=== PATIENT | male | born 1970 | race Caucasian/White ===

== ENCOUNTER 2018-06-01 11:26 | Emergency (ER) | payer BC, OTHER ==
[~2018-06-01] VITALS: Ht 182.9 cm; Wt 70.3 kg
[2018-06-01] MEDS ORDERED: methylPREDNISolone 125 MG (Solu-MEDROL) VIAL IVP ONE (11:45)
[2018-06-01] MEDS ORDERED: RT-ALBUTEROL/IPRATROPIUM 3 ML (DUONEB) VIAL INH ONE (11:45)
--- NOTE | 2018-06-01 11:46 | ED Respiratory ---
General Chief Complaint: Respiratory Problems Stated Complaint: SOB Nursing Triage Note: ARRIVED VIA AMB TO ROOM 06 WITH COMPLAINTS OF SOA X1 MONTH THAT HAS BECAME WORSE OVER THE LAST TWO DAYS. SPITTING UP YELLOW PHLEM ET FEVER LAST NIGHT. Source: patient, family Exam Limitations: no limitations History of Present Illness Date Seen by Provider: Jun 01, 2018 Time Seen by Provider: 11:43 Initial Comments This 47-year-old white male presents with a history of increasing shortness of breath and wheezing for the past month. Patient has noted an associated productive yellow sputum and had a fever last night. The patient has a history of COPD. He has stopped cigarette smoking but continues to smoke marijuana. The patient denies associated headache, stiff neck, photophobia, nausea vomiting or diarrhea, palpitations or chest pressure, dysuria or frequency. Allergies and Home Medications Allergies Coded Allergies: No Known Drug Allergies (Unverified , 06/01/18) Home Medications No Active Prescriptions or Reported Meds Patient Home Medication List Home Medication List Reviewed: Yes Review of Systems Review of Systems Constitutional: see HPI, fever EENTM: No hearing loss, No vision loss Respiratory: see HPI, cough, dyspnea on exertion, short of breath Cardiovascular: No chest pain, No palpitations Gastrointestinal: No abdominal pain, No diarrhea, No nausea, No vomiting Genitourinary: No dysuria, No frequency Musculoskeletal: No back pain Skin: No rash Psychiatric/Neurological: No Symptoms Reported Hematologic/Lymphatic: No Symptoms Reported Immunological/Allergic: no symptoms reported Past Pfvnmqn-Drgxnr-Kmkoqu Hx Past Med/Social Hx: Reviewed Nursing Past Med/Soc Hx Patient Social History Recent Foreign Travel: No Contact w/Someone Who Travel: No Recent Infectious Disease Expo: No Physical Exam Vital Signs - First Documented 06/01/18 11:38 Temp 95.1 Pulse 106 Resp 16 B/P (MAP) 142/88 (106) Pulse Ox 97 O2 Delivery Room Air Capillary Refill : Less Than 3 Seconds Height: 6'" Weight: 155lbs. oz. 70.609353ug; BMI Method:Stated General Appearance: WD/WN, no apparent distress Eyes: Bilateral Eye Normal Inspection HEENT: normal ENT inspection Neck: normal inspection Respiratory: decreased breath sounds, wheezing Cardiovascular: regular rate, rhythm, no murmur Gastrointestinal: non tender, soft Extremities: normal range of motion, normal inspection Neurologic/Psychiatric: no motor/sensory deficits, alert, normal mood/affect Skin: normal color, warm/dry Focused Exam Lactate Level 06/01/18 11:55: Lactic Acid Level 1.83 Lactic Acid Level Laboratory Tests Test 06/01/18 11:55 Lactic Acid Level 1.83 MMOL/L (0.50-2.00) Progress/Results/Core Measures Suspected Sepsis Recent Fever Within 48 Hours: Yes Infection Criteria Present: Suspected New Infection New/Unexplained Altered Menta: No Sepsis Screen: Possible Sepsis Risk SIRS Temperature:95.1 Pulse: 106 Respiratory Rate: 16 Laboratory Tests 06/01/18 11:55: White Blood Count 11.2H Blood Pressure 142 /88 Mean: 106 06/01/18 11:55: Lactic Acid Level 1.83 Laboratory Tests 06/01/18 11:55: Platelet Count 336 Results/Orders Lab Results Laboratory Tests Test 06/01/18 11:55 Range/Units White Blood Count 11.2 H 4.3-11.0 10^3/uL Red Blood Count 4.87 4.35-5.85 10^6/uL Hemoglobin 13.7 13.3-17.7 G/DL Hematocrit 42 40-54 % Mean Corpuscular Volume 86 80-99 FL Mean Corpuscular Hemoglobin 28 25-34 PG Mean Corpuscular Hemoglobin Concent 33 32-36 G/DL Red Cell Distribution Width 12.5 10.0-14.5 % Platelet Count 336 130-400 10^3/uL Mean Platelet Volume 9.2 7.4-10.4 FL Neutrophils (%) (Auto) 79 H 42-75 % Lymphocytes (%) (Auto) 10 L 12-44 % Monocytes (%) (Auto) 8 0-12 % Eosinophils (%) (Auto) 1 0-10 % Basophils (%) (Auto) 1 0-10 % Neutrophils # (Auto) 8.9 H 1.8-7.8 X 10^3 Lymphocytes # (Auto) 1.1 1.0-4.0 X 10^3 Monocytes # (Auto) 0.9 0.0-1.0 X 10^3 Eosinophils # (Auto) 0.1 0.0-0.3 10^3/uL Basophils # (Auto) 0.1 0.0-0.1 10^3/uL Lactic Acid Level 1.83 0.50-2.00 MMOL/L Troponin T < 6 <=15 NG/L My Orders Orders - NESTOR LI MD Chest Pa/Lat (2 View) (06/01/18 11:40) Cbc With Automated Diff (06/01/18 11:40) Ekg Tracing (06/01/18 11:40) Troponin T (06/01/18 11:40) Albuterol/Ipra Inhalation Soln (Duoneb I (06/01/18 11:45) Svn Small Volume Nebulizer (06/01/18 11:40) Methylprednisolone Sod Succ (Solu-Medrol (06/01/18 11:45) Saline Lock/Iv-Start (06/01/18 11:40) Blood Culture (06/01/18 11:46) Lactic Acid Analyzer (06/01/18 11:46) Medications Given in ED Current Medications Medications Dose Ordered Sig/Catherine Route Start Time Stop Time Status Last Admin Dose Admin Albuterol/ Ipratropium 3 ml ONCE ONCE INH 06/01/18 11:45 06/01/18 11:46 DC 06/01/18 11:49 3 ML Methylprednisolone Sodium Succinate 125 mg ONCE ONCE IVP 06/01/18 11:45 06/01/18 11:46 DC 06/01/18 11:56 125 MG Vital Signs/I&O 06/01/18 11:38 Temp 95.1 Pulse 106 Resp 16 B/P (MAP) 142/88 (106) Pulse Ox 97 O2 Delivery Room Air Capillary Refill : Less Than 3 Seconds Blood Pressure Mean: 106 Progress Note : Time: 12:48 Progress Note The patient was given a DuoNeb treatment and 125 mg of Solu-Medrol IV. The patient's laboratory and radiographic evaluation demonstrating no evidence of an infiltrate on the patient's chest x-ray and a normal white count. I believe the patient's presentation is most consistent with asthmatic bronchitis which she has had in the past. I recommended patient discontinue smoking marijuana. I the employee Bactrim, prednisone, and a Ventolin inhaler. I he follow-up with his doctor tomorrow. I invited him to return to the emergency department if he has any further problems or questions. Departure Impression Primary Impression: Asthmatic bronchitis Qualified Codes: J45.41 - Moderate persistent asthma with (acute) exacerbation Disposition: 01 HOME, SELF-CARE Condition: Improved Departure-Patient Inst. Decision time for Depature: 12:52 Referrals: TALIA BRICE MD (PCP/Family) Primary Care Physician Patient Instructions: Acute Bronchitis, Adult (DC) Add. Discharge Instructions: Bactrim, prednisone, and Ventolin inhaler as prescribed. Close follow-up with your doctor tomorrow. Return if any problems or questions. All discharge instructions reviewed with patient and/or family. Voiced understanding. Scripts No Active Prescriptions or Reported Meds NESTOR LI MD Jun 01, 2018 11:46
[2018-06-01 12:08] LABS: HEMATOCRIT 42 % (40-54); HEMOGLOBIN 13.7 G/DL (13.3-17.7); MEAN CORPUSCULAR HEMOGLOBIN 28 PG (25-34); MEAN CORPUSCULAR HGB CONC 33 G/DL (32-36); MEAN CORPUSCULAR VOLUME 86 FL (80-99); MEAN PLATELET VOLUME 9.2 FL (7.4-10.4); PLATELET COUNT 336 10^3/uL (130-400); RED CELL DISTRIBUTION WIDTH 12.5 % (10.0-14.5); WHITE BLOOD COUNT 11.2 10^3/uL (4.3-11.0)
[2018-06-01 12:09] LABS: BASOPHILS # (AUTO) 0.1 10^3/uL (0.0-0.1); BASOPHILS % (AUTO) 1 % (0-10); EOSINOPHILS # (AUTO) 0.1 10^3/uL (0.0-0.3); EOSINOPHILS % (AUTO) 1 % (0-10); LYMPHOCYTES # (AUTO) 1.1 X 10^3 (1.0-4.0); LYMPHOCYTES % (AUTO) 10 % (12-44); MONOCYTES # (AUTO) 0.9 X 10^3 (0.0-1.0); MONOCYTES % (AUTO) 8 % (0-12); NEUTROPHILS # (AUTO) 8.9 X 10^3 (1.8-7.8); NEUTROPHILS % (AUTO) 79 % (42-75)
--- NOTE | 2018-06-01 12:10 | NUR ---
PT STATES HE IS BREATING BETTER AFTER BREATHING TX.
--- NOTE | 2018-06-01 12:24 | Diagnostic Imaging Report ---
INDICATION: Shortness of breath, cough, fever. TECHNIQUE: Two views of the chest COMPARISON: None FINDINGS: The lung volumes are large. No focal consolidation is seen. No large pleural effusion or pneumothorax is seen. The cardiomediastinal silhouette is normal in size and contour. No acute osseous abnormality is seen. IMPRESSION: Large lung volumes with no acute pulmonary abnormality seen. Dictated by: Dictated on workstation # [id number]
--- NOTE | 2018-06-01 12:50 | NUR ---
LAB IN ROOM AT THIS TIME.
[2018-06-01 12:57] VITALS: BP 152/89
== END 2018-06-01 12:57 | disposition home or self-care (01) ==
LOC: ER FS 11:29
DX: J45.909 Unspecified asthma, uncomplicated (principal); J44.9 Chronic obstructive pulmonary disease, unspecified; F12.10 Cannabis abuse, uncomplicated; Z87.891 Personal history of nicotine dependence
CPT/HCPCS: 36415; 71046; 83605; 84484; 85025; 87040; 93005

== ENCOUNTER 2018-06-27 10:40 | Emergency (ER) | payer BC ==
[~2018-06-27] VITALS: Ht 182.9 cm; Wt 72.6 kg
[2018-06-27] MEDS ORDERED: FLUORESCEIN (FLUOR-I-STRIPS) 1 MG STRP ONE (10:49)
[2018-06-27] MEDS ORDERED: TETRACAINE 0.5% OPHTH SOLN 4 ML BTL (SINGLE DOSE ONLY) OP ONE (11:00)
[2018-06-27] MEDS ORDERED: ERYT1OIN6 OP (11:14)
--- NOTE | 2018-06-27 11:15 | ED General ---
General Chief Complaint: Eye Problems Stated Complaint: GLASS IN LT EYE Nursing Triage Note: PT REPORTS 3-4 DAYS AGO SOMETHING BLEW IN HIS LEFT EYE Nursing Sepsis Screen: No Definite Risk History of Present Illness Date Seen by Provider: June 27, 2018 Time Seen by Provider: 11:00 Initial Comments Patient presenting to the emergency department for evaluation of a foreign body to his left eye he says he sustained 3 days ago while he was working underneath his pickup truck he felt something fall into. He has been trying to get foreign bodies out with a Q-tip pushing on his eye and has had minimal success in getting any relief. He says that he is having worsening pain and tearing with increased blurred vision. He says that his tetanus is up-to-date. Allergies and Home Medications Allergies Coded Allergies: No Known Drug Allergies (Unverified , 06/01/18) Home Medications Erythromycin Base 1 Gm Oint...g., 0 OP Q2H 1/2 inch Prescribed by: DANIEL MUNIZ on 06/27/18 1114 Patient Home Medication List Home Medication List Reviewed: Yes Review of Systems Review of Systems Constitutional: No fever EENTM: blurred vision, eye pain, tearing; No double vision, No vision loss Past Hrswcau-Dlxgsq-Cscwih Hx Patient Social History Alcohol Use: Denies Use Recreational Drug Use: No Drug of Choice: POT Smoking Status: Former Smoker 2nd Hand Smoke Exposure: No Recent Foreign Travel: No Contact w/Someone Who Travel: No Recent Infectious Disease Expo: No Recent Hopitalizations: No Physical Abuse: No Sexual Abuse: No Mistreated: No Fear: No Immunizations Up To Date Tetanus Booster (TDap): Less than 5yrs Past Medical History Gallbladder, Orthopedic, Tonsillectomy Respiratory: Yes COPD Cardiac: No Neurological: No Genitourinary: No Gastrointestinal: No Musculoskeletal: No Endocrine: No HEENT: No Cancer: No Psychosocial: No Integumentary: No Physical Exam Vital Signs Vital Signs - First Documented 06/27/18 06/27/18 10:59 11:16 Temp 98.7 Pulse 93 Resp 18 B/P (MAP) 134/84 (101) Pulse Ox 97 O2 Delivery Room Air Capillary Refill : NONE Height, Weight, BMI Height: 6'" Weight: 160lbs. oz. 72.743706dk; BMI Method:Stated General Appearance: No Apparent Distress, WD/WN Eyes: Left Eye Photophobia, Left Eye Other (sclera injected diffusely. Over center of pupil there is a metallic appearing foreign body. Negative Seidels on fluoro exam. No abrasion on fluoro exam. 20/20 BL, 20/20 R, 20/80 L); Bilateral Eye PERRL, Bilateral Eye EOMI Procedures/Interventions Eye : Location: left eye Eye FB Removal: removal w/ needle Anesthesia (gtts): Tetracaine Progress/Procedure Conclusion Used 30 gauge needle to remove metallic foreign body. I needed approximate 6 attempts as he was moving his eye. There is an abrasion in the area where the foreign body was removed. On multiple is inspections there is no further foreign body in his Ericka's sign was negative post procedure as well. Progress/Results/Core Measures Suspected Sepsis Recent Fever Within 48 Hours: No Infection Criteria Present: None New/Unexplained Altered Menta: No Sepsis Screen: No Definite Risk SIRS Temperature:98.7 Pulse: 93 Respiratory Rate: 18 Blood Pressure 134 /84 Mean: 101 Results/Orders My Orders Orders - DANIEL MUNIZ DO Tetracaine 0.5% Ophth Meg Sdv (Tetracai (06/27/18 11:00) Fluorescein Strips (Gopvy-S-Bdfukz) (06/27/18 10:49) Medications Given in ED Current Medications Medications Dose Ordered Sig/Catherine Route Start Time Stop Time Status Last Admin Dose Admin Fluorescein Sodium 1 mg STK-MED ONCE .ROUTE 06/27/18 10:49 06/27/18 10:54 DC 06/27/18 10:58 1 MG Vital Signs/I&O 06/27/18 06/27/18 10:59 11:16 Temp 98.7 98.7 Pulse 93 92 Resp 18 20 B/P (MAP) 134/84 (101) 134/84 (101) Pulse Ox 97 O2 Delivery Room Air Room Air Capillary Refill : NONE Blood Pressure Mean: 101 Progress Note : Progress Note Patient has direct photophobia but no consensual photophobia. Is possible he could have an early iritis however more likely his sclerae inflamed from the foreign body being present. Hopefully this will improve now that the foreign bodies removed that he was told that it is very important that he follows with an eye doctor in 2 days to ensure improvement. He was placed on erythromycin ointment and he was referred to the ophthalmology clinic to follow-up on Friday for repeat exam. He was told to come back to emergency department with worsening pain blurred vision or other general concerns. Departure Impression Primary Impression: Foreign body, eye Disposition: HOME, SELF-CARE Condition: Stable Departure-Patient Inst. Decision time for Depature: 11:12 Referrals: TALIA BRICE MD (PCP/Family) Primary Care Physician Scripts Erythromycin Base (Erythromycin Opthalmic Ointment) 1 Gm Oint...g. 0 OP Q2H for 5 Days, #1 TUBE 1/2 inch Prov: DANIEL MUNIZ DO 06/27/18 DANIEL MUNIZ DO June 27, 2018 11:15
[2018-06-27 11:16] VITALS: BP 134/84
== END 2018-06-27 11:19 | disposition home or self-care (01) ==
LOC: EDUNIT# 10:40 → ER FS 10:42
DX: T15.02XA Foreign body in cornea, left eye, initial encounter (principal); J44.9 Chronic obstructive pulmonary disease, unspecified; Z90.89 Acquired absence of other organs; Z87.891 Personal history of nicotine dependence
CPT/HCPCS: 65220

== ENCOUNTER 2018-11-17 19:15 | Emergency (ER) | payer SELFPAY ==
[~2018-11-17] VITALS: Ht 182.9 cm; Wt 75.0 kg
[~2018-11-17 19:15] MED LIST: ERYT1OIN6 OP
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
[2018-11-17] MEDS ORDERED: morphine INJ 10 MG/ML 1ML (SYR OR VIAL) IM STA (19:34)
[2018-11-17] MEDS ORDERED: oxyCODONE/APAP 10/325MG (PERCOCET 10) TABLET PO ONE (20:15)
[2018-11-17] MEDS ORDERED: oxyCODONE/APAP 5/325MG (PERCOCET 5) TABLET ONE (20:22)
[2018-11-17 20:29] VITALS: BP 157/91
[2018-11-17] MEDS ORDERED: oxyCODONE/APAP 5/325MG (PERCOCET 5) TABLET PO ONE (20:30)
== END 2018-11-17 20:32 | disposition home or self-care (01) ==
LOC: EDUNIT# 19:15 → ER FS 19:17
DX: T22.211A Burn of second degree of right forearm, initial encounter (principal); T23.261A Burn of second degree of back of right hand, initial encounter; T31.0 Burns involving less than 10% of body surface; J44.9 Chronic obstructive pulmonary disease, unspecified; Z90.89 Acquired absence of other organs; X10.2XXA Contact with fats and cooking oils, initial encounter
CPT/HCPCS: 96372; 99284

== ENCOUNTER 2020-03-09 14:24 | Emergency (ER) | payer OTHER ==
[~2020-03-09] VITALS: Ht 182.8 cm; Wt 75.0 kg
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
[2020-03-09] MEDS ORDERED: fentaNYL INJECTION 100 MCG/2 ML AMP IVP STA ×2 (14:37→16:03)
[2020-03-09] MEDS ORDERED: NS IV 1000 ML 1,000 ML IV SCH (14:45)
--- NOTE | 2020-03-09 14:49 | NUR ---
SL started per Sera Hodge RN, labs drawn.
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
--- NOTE | 2020-03-09 14:55 | NUR ---
Sublimaze 50 mcg given SIVP for pain rated "10"/10.
--- NOTE | 2020-03-09 14:55 | NUR ---
NS hung wide open.
[2020-03-09] MEDS ORDERED: CATHETER FLUSH 10 ML SYR IV PRN (15:00)
[2020-03-09] MEDS ORDERED: NS 100 ML (IVPB) BAG IV ONE (15:00)
[2020-03-09] MEDS ORDERED: IOHEXOL 350 MG/ML 100 ML (OMNIPAQUE 350) VIAL IV ONE (15:00)
[2020-03-09] MEDS ORDERED: HOLD METFORMIN - RECEIVED CONTRAST 20 ML VIAL IV SCH (15:00)
--- NOTE | 2020-03-09 15:00 | NUR ---
Pt denies ability to give urine sample.
[2020-03-09 15:20] LABS: BASOPHILS # (AUTO) 0.1 10^3/uL (0.0-0.1); BASOPHILS % (AUTO) 2 % (0-10); EOSINOPHILS # (AUTO) 0.1 10^3/uL (0.0-0.3); EOSINOPHILS % (AUTO) 1 % (0-10); HEMATOCRIT 42 % (40-54); LYMPHOCYTES # (AUTO) 2.3 X 10^3 (1.0-4.0); LYMPHOCYTES % (AUTO) 39 % (12-44); MEAN CORPUSCULAR HEMOGLOBIN 28 PG (25-34); MEAN CORPUSCULAR HGB CONC 34 G/DL (32-36); MEAN CORPUSCULAR VOLUME 84 FL (80-99); MEAN PLATELET VOLUME 9.7 FL (7.4-10.4); MONOCYTES # (AUTO) 0.5 X 10^3 (0.0-1.0); MONOCYTES % (AUTO) 9 % (0-12); NEUTROPHILS # (AUTO) 2.8 X 10^3 (1.8-7.8); NEUTROPHILS % (AUTO) 49 % (42-75); PLATELET COUNT 319 10^3/uL (130-400); WHITE BLOOD COUNT 5.8 10^3/uL (4.3-11.0)
[2020-03-09 15:28] LABS: INR 0.9 (0.8-1.4); PROTHROMBIN TIME PATIENT 12.9 SEC (12.2-14.7)
[2020-03-09 15:29] LABS: ALANINE AMINOTRANSFERASE 12 U/L (0-55); ALBUMIN 4.2 GM/DL (3.2-4.5); ALKALINE PHOSPHATASE 70 U/L (40-136); BILIRUBIN,TOTAL 0.5 MG/DL (0.1-1.0); BUN/CREATININE RATIO 26; CARBON DIOXIDE 24 MMOL/L (21-32); CHLORIDE 102 MMOL/L (98-107); CREATININE SERUM 0.95 MG/DL (0.60-1.30); GFR ESTIMATED > 60; GLUCOSE 91 MG/DL (70-105); POTASSIUM 3.8 MMOL/L (3.6-5.0); SODIUM 139 MMOL/L (135-145); TOTAL PROTEIN 6.9 GM/DL (6.4-8.2)
--- NOTE | 2020-03-09 15:30 | NUR ---
Pt denies need to urinate. Again remind patient to let nurse know when he can void, urinal provided.
--- NOTE | 2020-03-09 15:41 | Diagnostic Imaging Report ---
PROCEDURE: CT head and CT cervical spine without contrast. TECHNIQUE: Multiple contiguous axial images were obtained through the brain and cervical spine without the use of intravenous contrast. Sagittal and coronal reformations through the cervical spine were then performed. Auto Exposure Controls were utilized during the CT exam to meet ALARA standards for radiation dose reduction. INDICATION: Fall from roof. Possible loss of consciousness. COMPARISON: None. FINDINGS: CT HEAD: Ventricles and cortical sulci are normal in size and contour. There is no midline shift or mass-effect. No acute intra-axial hemorrhage is seen. There are no abnormal areas of increased or decreased density to suggest acute hemorrhage or edema. No extra-axial masses or collections are present. The bony calvarium is intact. The visualized paranasal sinuses are unremarkable. The mastoid air cells are clear. CT CERVICAL SPINE: Evaluation of the static alignment shows straightening with slight reversal of normal lordotic curvature of the cervical spine. Findings may be related to patient positioning, as well as spasm. There is no significant hernan or retrolisthesis. There is no evidence of jumped facets. Vertebral body heights are maintained. There is no acute fracture. No bony fragments are seen within the spinal canal. There are mild multilevel degenerative changes consistent with intervertebral disc height loss and multilevel facet arthropathy, right greater than left. Pre and paravertebral soft tissue structures are unremarkable. Included portions of the lung apices are clear. IMPRESSION: 1. No acute intracranial abnormality. No CT evidence of mass, acute infarct or intracranial hemorrhage. 2. No acute fracture or dislocation of the cervical spine. Dictated by: Dictated on workstation # [id number]
--- NOTE | 2020-03-09 16:00 | NUR ---
Patient continues to report no urge to void, urine is not collected. Abd soft, non-tender.
--- NOTE | 2020-03-09 16:19 | NUR ---
Sublimaze 50 mcg given for pain rated "7-8"/10.
--- NOTE | 2020-03-09 16:43 | Diagnostic Imaging Report ---
EXAMINATION: CT Chest, Abdomen and Pelvis with intravenous contrast. TECHNIQUE: Multiple contiguous axial images were obtained through the chest, abdomen and pelvis after the uneventful administration of intravenous contrast. All CT scans use one or more of the following dose optimizing techniques: automated exposure control, MA and/or KvP adjustment based on a patient size and exam type, or iterative reconstruction. HISTORY: Fall. COMPARISON: None available. FINDINGS: There is no edema or pneumonia. No pleural effusion. No pneumothorax. There is a 2 mm left lower lobe pulmonary nodule. There are few small tracheal diverticula. Lungs are mildly emphysematous. There is no axillary or supraclavicular lymphadenopathy. There is no mediastinal lymphadenopathy. Heart size is normal. There are no coronary artery calcifications. No pericardial effusion. Aorta is normal in caliber. The liver is normal without focal lesion. There is no biliary ductal dilation. Gallbladder is surgically absent. Pancreas is normal. Spleen is normal. Adrenal glands are normal. The kidneys are normal. There is no hydronephrosis. Urinary bladder is normal. Visualized bowel is normal in caliber without obstruction or inflammation. No free fluid or air. No abdominal or pelvic lymphadenopathy. Aorta is normal in caliber without aneurysm. There are no suspicious osseous lesions. IMPRESSION: 1. No traumatic injury identified in the chest, abdomen or pelvis. 2. A 2 mm left lower lobe pulmonary nodule. According to the Fleischner Society guidelines: In a low risk patient, no routine follow up is recommended. In a high risk patient, consider optional CT at 12 months. Dictated by: Dictated on workstation # [id number]
--- NOTE | 2020-03-09 16:46 | Diagnostic Imaging Report ---
INDICATION: Fall, pain. COMPARISON: Radiographs of the chest dated 06/01/2018. TECHNIQUE: Three radiographs of the left shoulder dated March 09, 2020. FINDINGS: Chronic healed mid left clavicular shaft fracture. Widening of the left acromioclavicular joint with the distal clavicle superiorly positioned in relationship to the acromion by approximately one shaft width with the undersurface of the clavicle compared to the superior margin of the acromion. This is new since the prior radiograph of the chest. Coracoclavicular distance is 25 mm. No additional acute fracture. Glenohumeral joint relationship is well maintained. Small calcifications are noted superior to the humeral head. Subacromial space is well maintained. IMPRESSION: 1. Acute appearing type II to type III acromioclavicular joint injury and separation without acute fracture. 2. Calcifications superior to the humeral head are felt to relate to calcific tendinitis. Dictated by: Dictated on workstation # [id number]
[2020-03-09] MEDS ORDERED: KETOROLAC 30 MG/ML VIAL IVP STA (17:24)
--- NOTE | 2020-03-09 17:32 | NUR ---
Toradol 30 mg given IVP for c/o pain rated "3"/10.
[2020-03-09] MEDS ORDERED: ACHD5005 PO (17:40)
[2020-03-09] MEDS ORDERED: IBUP-1780 PO (17:40)
[2020-03-09 17:43] VITALS: BP 133/86
--- NOTE | 2020-03-09 17:43 | NUR ---
Patient discharged to home after review of home instructions. 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 L arm in sling. Reviewed prescriptions that were sent to [facility]. Discharged via WC to vehicle without incident where was present to drive.
== END 2020-03-09 17:43 | disposition home or self-care (01) ==
LOC: EDUNIT# 14:24 → ER FS 14:26
DX: S43.122A Dislocation of left acromioclavicular joint, 100%-200% displacement, initial encounter (principal); W11.XXXA Fall on and from ladder, initial encounter
CPT/HCPCS: 36415; 70450; 71260; 72125; 73030; 74177; 80053; 85025; 85610; 85730; 99284; A4565; G0480; 80320

== ENCOUNTER 2020-08-22 15:05 | Emergency (ER) | payer OTHER ==
[~2020-08-22] VITALS: Ht 182.8 cm; Wt 75.0 kg
[~2020-08-22 15:05] MED LIST changes: +ACHD5005 PO; +IBUP-1780 PO
[2020-08-22] MEDS ORDERED: LIDOCAINE 1% INJ 20 ML 20 ML VIAL ONE (15:09)
[2020-08-22] MEDS ORDERED: LIDOCAINE 1% INJ 20 ML 20 ML VIAL INJ ONE ×2 (15:15→16:00)
[2020-08-22] MEDS ORDERED: TETANUS,DIPTH,PERTUSS P/F (BOOSTRIX) 0.5 ML VIAL IM ONE (16:00)
[2020-08-22] MEDS ORDERED: HYDROcodone/APAP 5 MG/325 MG (LORTAB) TAB PO ONE (16:15)
[2020-08-22] MEDS ORDERED: BACI28.35 TP (16:24)
[2020-08-22] MEDS ORDERED: CEPH500T PO (16:24)
[2020-08-22] MEDS ORDERED: ACHD5005 PO (16:24)
--- NOTE | 2020-08-22 16:27 | ED Lower Extremity ---
General Chief Complaint: Laceration Stated Complaint: LT LEG LAC Nursing Triage Note: Pt arrival to ER per POV reporting slipped off a 2 X 4 he was placing for metal on roof. Lower extremities slid down about a foot catching them on metal edge. Lacerations to bilateral lower leg anterior shins. Nursing Sepsis Screen: No Definite Risk Source: patient Exam Limitations: no limitations History of Present Illness Date Seen by Provider: Aug 22, 2020 Time Seen by Provider: 13:07 Initial Comments 49 y/o male presents with open laceration to both lower legs from an injury at work. On a roof and slipped falling (not great distance, only 1 foot drop and not off roof) onto the edge of metal myriam material cutting both legs. Was able to walk and got a ride to the ER. No other injuries or concerns. Last tetanus presumed > 5 years. Allergies and Home Medications Allergies Coded Allergies: No Known Drug Allergies (Unverified , 06/01/18) Home Medications Bacitracin/Polymyxin B Sulfate 28.3 Gm Oint...g., 28.3 GM TP DAILY Prescribed by: EDUARDO OLIVAS on 08/22/20 1624 Cephalexin 500 Mg Tablet, 500 MG PO QID Prescribed by: EDUARDO OLIVAS on 08/22/20 1624 Hydrocodone/Acetaminophen 1 Each Tablet, 1 EACH PO Q4H Prescribed by: EDUARDO OLIVAS on 08/22/20 1625 Patient Home Medication List Home Medication List Reviewed: Yes Review of Systems Constitutional: No fever, No malaise, No weakness; other (pain) Respiratory: no symptoms reported Cardiovascular: no symptoms reported Musculoskeletal: see HPI, other (b/l leg pain) Skin: see HPI (lacerations both lower legs) Psychiatric/Neurological: Denies Numbness, Denies Paresthesia, Denies Weakness Past Fgrxllu-Thvgys-Eopdbm Hx Past Med/Social Hx: Reviewed Nursing Past Med/Soc Hx Patient Social History Alcohol Use: Occasionally Uses Number of Drinks Today: AA Alcohol Beverage of Choice: [place] Drug of Choice: "WEED" Smoking Status: Former Smoker Former Smoker, Quit: Feb 24, 2009 2nd Hand Smoke Exposure: No Recent Infectious Disease Expo: No Recent Hopitalizations: No Immunizations Up To Date Tetanus Booster (TDap): More than 5yrs Seasonal Allergies Seasonal Allergies: No Past Medical History Surgeries: Yes Gallbladder, Orthopedic, Tonsillectomy Respiratory: Yes COPD Cardiac: No Neurological: No Genitourinary: No Gastrointestinal: Yes (Hep C) Hepatitis Musculoskeletal: No Endocrine: No HEENT: No Cancer: No Psychosocial: No Integumentary: No Blood Disorders: No Adverse Reaction/Blood Tranf: No Physical Exam Vital Signs Vital Signs - First Documented 08/22/20 15:08 Temp 37.0 Pulse 137 Resp 20 B/P (MAP) 141/101 (114) Pulse Ox 97 O2 Delivery Room Air Capillary Refill : Less Than 3 Seconds Height, Weight, BMI Height: 6'" Weight: 160lbs. oz. [id number]; 22.00 BMI Method:Stated General Appearance: WD/WN, no apparent distress, other (uncomfortable // in pain) Hips: bilateral hip non-tender, bilateral hip normal inspection, bilateral hip normal range of motion, bilateral hip no evidence of injury Legs: bilateral leg normal range of motion, bilateral leg pain, bilateral leg soft tissue tenderness Knees: bilateral knee non-tender, bilateral knee normal inspection, bilateral knee normal range of motion, bilateral knee no evidence of injury Ankles: bilateral ankle non-tender, bilateral ankle normal inspection, bilateral ankle normal range of motion, bilateral ankle no evidence of injury Feet: bilateral foot non-tender, bilateral foot normal inspection, bilateral foot normal range of motion, bilateral foot no evidence of injury Neurologic/Psychiatric: no motor/sensory deficits, alert, normal mood/affect, oriented x 3 Skin: other (1) Large anterior right leg lacerationextending medially to calf, flaps and irregular edges, 12cm and full thickness, no muscle involvement, 2) Right anterior lower leg stellate and irregular lac with flaps and contused tissue, 5cm) Procedures/Interventions Wound Location: Lower Extremities (right) Wound Length (cm): 12 Wound's Depth, Shape: irregular, flap, stellate, contused tissue Wound Explored: clean Irrigated w/ Saline (ccs): 500 Betadine Prep?: No (surecleans ) Volume Anesthetic (ccs): 15 Wound Debrided: minimal Suture: Chromic Suture Size: 4-0 Number of Sutures: 15 Number Deep Layer Sutures: 2 Sterile Dressing Applied?: Yes Progress 2nd lac- left leg see exam description 5cm #9 , absorbable 4-0 sterile dressing applied Progress/Results/Core Measures Results/Orders My Orders Orders - BRENDONEDUARDO L DO Lidocaine 1% Inj 20 Ml (Xylocaine 1% Inj (08/22/20 15:09) Lidocaine 1% Inj 20 Ml (Xylocaine 1% Inj (08/22/20 15:15) Lidocaine 1% Inj 20 Ml (Xylocaine 1% Inj (08/22/20 16:00) Dipht,Pertuss(Acell),Tet Adult (Boostrix (08/22/20 16:00) Hydrocodone/Apap 5/325 Tablet (Lortab 5 (08/22/20 16:15) Medications Given in ED Current Medications Medications Dose Ordered Sig/Catherine Route Start Time Stop Time Status Last Admin Dose Admin Acetaminophen/ Hydrocodone Bitart 1 ea ONCE ONCE PO 08/22/20 16:15 08/22/20 16:16 DC 08/22/20 16:17 1 EA Diphtheria/ Tetanus/Acell Pertussis 0.5 ml ONCE ONCE IM 08/22/20 16:00 08/22/20 16:01 DC 08/22/20 15:54 0.5 ML Lidocaine HCl 20 ml ONCE ONCE INJ 08/22/20 15:15 08/22/20 15:16 DC 08/22/20 15:49 20 ML Lidocaine HCl 20 ml ONCE ONCE INJ 08/22/20 16:00 08/22/20 16:01 DC 08/22/20 15:53 20 ML Vital Signs/I&O 08/22/20 08/22/20 15:08 16:17 Temp 37.0 37.0 Pulse 137 Resp 20 B/P (MAP) 141/101 (114) Pulse Ox 97 O2 Delivery Room Air Blood Pressure Mean: 114 Departure Impression Primary Impression: Lacerations of multiple sites of leg Qualified Codes: S81.819A - Laceration without foreign body, unspecified lower leg, initial encounter Disposition: HOME, SELF-CARE Condition: Improved Departure-Patient Inst. Decision time for Depature: 16:23 Referrals: TALIA HIDAGLO MD (PCP/Family) Primary Care Physician Patient Instructions: Laceration Repair With Stitches (DC) Add. Discharge Instructions: Take it easy for the next 1 week without stressing the wounds on your leg...at all. The following week you may work, but light duty only avoiding stress to the skin/ wound. Week 3 keep the wounds covered and be gentle, by week 4 you should be fine. See Dr Hidalgo for any questions about wound healing, signs of infection All discharge instructions reviewed with patient and/or family. Voiced understanding. Scripts Bacitracin/Polymyxin B Sulfate (Polysporin Ointment) 28.3 Gm Oint...g. 28.3 GM TP DAILY, #30 TUBE Prov: EDUARDO OLIVAS DO 08/22/20 Hydrocodone/Acetaminophen (Hydrocodone-Acetamin 5-325 mg) 1 Each Tablet 1 EACH PO Q4H for Abdominal Pain, #12 TAB Prov: EDUARDO OLIVAS DO 08/22/20 Cephalexin (Cephalexin) 500 Mg Tablet 500 MG PO QID, #15 TAB 0 Refills Prov: EDUARDO OLIVAS DO 08/22/20 EDUARDO OLIVAS DO Aug 22, 2020 16:26
[2020-08-22 16:28] VITALS: BP 163/96
== END 2020-08-22 16:28 | disposition home or self-care (01) ==
LOC: EDUNIT# 15:05 → ER FS 15:06
DX: S81.812A Laceration without foreign body, left lower leg, initial encounter (principal); S81.811A Laceration without foreign body, right lower leg, initial encounter; J44.9 Chronic obstructive pulmonary disease, unspecified; Z87.891 Personal history of nicotine dependence; Z23 Encounter for immunization; W01.0XXA Fall on same level from slipping, tripping and stumbling without subsequent striking against object, initial encounter; Y99.0 Civilian activity done for income or pay
CPT/HCPCS: 12002; 12034; 90715

== ENCOUNTER → 2022-10-01 | Outpatient (CLI) | payer OTHER ==
[~2022-10-01] MED LIST changes: +BACI28.35 TP; +CEPH500T PO
== END ==
LOC: CARDFS 08:36
PROVIDERS: ATTEND Internal Medicine Cardiovascular Disease
DX: R07.9 Chest pain, unspecified (principal)
CPT/HCPCS: 93306

== ENCOUNTER → 2022-10-02 | Outpatient (CLI) | payer OTHER ==
[2022-10-02 10:52] VITALS: BP 130/82
== END ==
LOC: CARD 10:34
PROVIDERS: ATTEND Physician Assistant
DX: R07.9 Chest pain, unspecified (principal)
CPT/HCPCS: 93017